=== PATIENT | female | born 2000 | race Caucasian/White ===

== ENCOUNTER → 2020-05-03 | Outpatient (CLI) | payer MEDICAID ==
[2020-05-03 17:06] LABS: BACTERIA,URINE MODERATE /HPF; BILIRUBIN,URINE NEGATIVE (NEGATIVE); CLARITY,URINE CLEAR; COLOR,URINE YELLOW; GLUCOSE, URINE (UA) NEGATIVE (NEGATIVE); KETONES,URINE NEGATIVE (NEGATIVE); LEUKOCYTE ESTERASE ,URINE TRACE (NEGATIVE); NITRITE,URINE NEGATIVE (NEGATIVE); PROTEIN,URINE NEGATIVE (NEGATIVE)
== END ==
LOC: LAB FS 15:57
PROVIDERS: ATTEND Family Medicine
DX: O26.899 Other specified pregnancy related conditions, unspecified trimester (principal); R30.0 Dysuria; Z3A.00 Weeks of gestation of pregnancy not specified
CPT/HCPCS: 81000; 87088

== ENCOUNTER 2020-05-04 18:03 | Emergency (ER) | payer MEDICAID ==
[~2020-05-04] VITALS: Ht 170 cm; Wt 68.6 kg
[2020-05-04 18:30] LABS: AMORPHOUS SEDIMENT,UR MOD AMOR URATES /LPF; BACTERIA,URINE FEW /HPF; BILIRUBIN,URINE NEGATIVE (NEGATIVE); CLARITY,URINE CLOUDY; COLOR,URINE YELLOW; GLUCOSE, URINE (UA) NEGATIVE (NEGATIVE); KETONES,URINE NEGATIVE (NEGATIVE); LEUKOCYTE ESTERASE ,URINE 1+ (NEGATIVE); NITRITE,URINE NEGATIVE (NEGATIVE); PROTEIN,URINE NEGATIVE (NEGATIVE)
[2020-05-04] MEDS ORDERED: ACETAMINOPHEN 500 MG TAB (TYLENOL) PO ONE (18:45)
[2020-05-04 18:58] LABS: HEMATOCRIT 35 % (35-52); HEMOGLOBIN 11.9 G/DL (11.5-16.0); MEAN CORPUSCULAR HEMOGLOBIN 28 PG (25-34); MEAN CORPUSCULAR HGB CONC 34 G/DL (32-36); MEAN CORPUSCULAR VOLUME 83 FL (80-99); MEAN PLATELET VOLUME 11.3 FL (7.4-10.4); PLATELET COUNT 224 10^3/uL (130-400); WHITE BLOOD COUNT 11.4 10^3/uL (4.3-11.0)
[2020-05-04 18:59] LABS: BASOPHILS % (AUTO) 0 % (0-10); EOSINOPHILS # (AUTO) 0.1 10^3/uL (0.0-0.3); EOSINOPHILS % (AUTO) 1 % (0-10); LYMPHOCYTES # (AUTO) 2.7 X 10^3 (1.0-4.0); LYMPHOCYTES % (AUTO) 23 % (12-44); MONOCYTES # (AUTO) 0.6 X 10^3 (0.0-1.0); MONOCYTES % (AUTO) 5 % (0-12); NEUTROPHILS % (AUTO) 70 % (42-75)
--- NOTE | 2020-05-04 19:00 | ED GU-Female ---
General Chief Complaint: OB < 20 WEEKS Stated Complaint: ABD CRAMPING Nursing Triage Note: Patient presents to the ED at 8weeks 6days gestation with c/o of pelvic cramping. She states the cramping began on Sunday and has continued intermittently. She was seen by her OB yesterday and was told she didn't have a UTI and to hydrate and if the pain became worse she needed to be evaluated. Nursing Sepsis Screen: No Definite Risk Source: patient Exam Limitations: no limitations History of Present Illness Date Seen by Provider: May 04, 2020 Time Seen by Provider: 18:12 Initial Comments The patient presents ER by private conveyance from home with chief complaint that today she's been experiencing some suprapubic and right lower pelvic sharp intermittent cramp-like pains. She is a . She is 8 weeks and 6 days by her own admission and had an ultrasound at 5 weeks and 6 days showing intrauterine . She had a visit with Dr. Dinero last week where she laid ultrasound on saw good heart tones. She had a urinalysis which was negative yesterday. She's not having any dysuria nausea vomiting fever chills. She says sometimes her son bounces on her tummy and that worries her that maybe she has allowed something happened to her fetus. She called her doctor's office and they told her to drink fluids and take Tylenol. She said she does not like taking medicines that she did not take any Tylenol last day or so. She admits she does not drink enough fluids. She does not have any other significant medical or surgical history in her abdomen. Allergies and Home Medications Allergies Coded Allergies: No Known Drug Allergies (Unverified , 05/04/20) Patient Home Medication List Home Medication List Reviewed: Yes Review of Systems Review of Systems Constitutional: No chills, No diaphoresis EENTM: No ear discharge, No ear pain, No blurred vision Respiratory: No cough, No phlegm Cardiovascular: No chest pain, No palpitations Gastrointestinal: see HPI, abdominal pain; No constipation (bowel movement yesterday), No diarrhea, No nausea Genitourinary: denies burning, denies discharge : Yes Musculoskeletal: No back pain, No joint pain All Other Systemes Reviewed Negative Unless Noted: Yes Past Fmicznf-Ftoxga-Qdhyji Hx Patient Social History Alcohol Use: Denies Use Recreational Drug Use: No Smoking Status: Former Smoker Type Used: Cigarettes Former Smoker, Quit: Apr 06, 2020 2nd Hand Smoke Exposure: No Recent Foreign Travel: No Contact w/Someone Who Travel: No Recent Infectious Disease Expo: No Recent Hopitalizations: No Physical Abuse: No Sexual Abuse: No Mistreated: No Fear: No Seasonal Allergies Seasonal Allergies: No Past Medical History Adenoidectomy, Orthopedic, Tonsillectomy Respiratory: Yes Asthma Cardiac: No Neurological: No Genitourinary: No Gastrointestinal: No Musculoskeletal: No Endocrine: No HEENT: No Cancer: No Psychosocial: No Integumentary: No Blood Disorders: No Physical Exam Vital Signs Vital Signs - First Documented 05/04/20 18:17 Temp 36.9 Pulse 103 Resp 16 B/P (MAP) 142/67 (92) Pulse Ox 99 O2 Delivery Room Air Capillary Refill : Less Than 3 Seconds Height, Weight, BMI Height: '" Weight: lbs. oz. kg; 23.00 BMI Method: General Appearance: WD/WN, mild distress HEENT: PERRL/EOMI, pharynx normal Neck: full range of motion, normal inspection Cardiovascular: normal peripheral pulses, regular rate, rhythm Respiratory: no respiratory distress, no accessory muscle use Gastrointestinal: normal bowel sounds, non tender, soft Extremities: normal range of motion, normal capillary refill Neurologic/Psychiatric: alert, oriented x 3, other (tearful, anxious affect) Skin: normal color, warm/dry Progress/Results/Core Measures Suspected Sepsis Recent Fever Within 48 Hours: No Infection Criteria Present: None New/Unexplained Altered Menta: No Sepsis Screen: No Definite Risk SIRS Temperature: Pulse: 103 Respiratory Rate: 16 Laboratory Tests 05/04/20 18:45: White Blood Count 11.4H Blood Pressure 142 /67 Mean: 92 Laboratory Tests 05/04/20 18:45: Creatinine 0.61, Platelet Count 224, Total Bilirubin 0.2 Results/Orders Lab Results Laboratory Tests Test 05/04/20 18:05 05/04/20 18:45 Range/Units Urine Color YELLOW Urine Clarity CLOUDY Urine pH 7.0 5-9 Urine Specific [place] 1.020 1.016-1.022 Urine Protein NEGATIVE NEGATIVE Urine Glucose (UA) NEGATIVE NEGATIVE Urine Ketones NEGATIVE NEGATIVE Urine Nitrite NEGATIVE NEGATIVE Urine Bilirubin NEGATIVE NEGATIVE Urine Urobilinogen 0.2 < = 1.0 MG/DL Urine Leukocyte Esterase 1+ H NEGATIVE Urine RBC (Auto) NEGATIVE NEGATIVE Urine RBC NONE /HPF Urine WBC 2-5 /HPF Urine Squamous Epithelial Cells 2-5 /HPF Urine Crystals PRESENT H /LPF Urine Amorphous Sediment MOD PREAM URATES H /LPF Urine Bacteria FEW H /HPF Urine Casts NONE /LPF Urine Mucus NEGATIVE /LPF Urine Culture Indicated NO White Blood Count 11.4 H 4.3-11.0 10^3/uL Red Blood Count 4.23 L 4.35-5.85 10^6/uL Hemoglobin 11.9 11.5-16.0 G/DL Hematocrit 35 35-52 % Mean Corpuscular Volume 83 80-99 FL Mean Corpuscular Hemoglobin 28 25-34 PG Mean Corpuscular Hemoglobin Concent 34 32-36 G/DL Red Cell Distribution Width 12.5 10.0-14.5 % Platelet Count 224 130-400 10^3/uL Mean Platelet Volume 11.3 H 7.4-10.4 FL Immature Granulocyte % (Auto) 0 % Neutrophils (%) (Auto) 70 42-75 % Lymphocytes (%) (Auto) 23 12-44 % Monocytes (%) (Auto) 5 0-12 % Eosinophils (%) (Auto) 1 0-10 % Basophils (%) (Auto) 0 0-10 % Neutrophils # (Auto) 8.0 H 1.8-7.8 X 10^3 Lymphocytes # (Auto) 2.7 1.0-4.0 X 10^3 Monocytes # (Auto) 0.6 0.0-1.0 X 10^3 Eosinophils # (Auto) 0.1 0.0-0.3 10^3/uL Basophils # (Auto) 0.0 0.0-0.1 10^3/uL Immature Granulocyte # (Auto) 0.0 0.0-0.1 10^3/uL Sodium Level 137 135-145 MMOL/L Potassium Level 3.7 3.6-5.0 MMOL/L Chloride Level 104 98-107 MMOL/L Carbon Dioxide Level 22 21-32 MMOL/L Anion Gap 11 5-14 MMOL/L Blood Urea Nitrogen 7 7-18 MG/DL Creatinine 0.61 0.60-1.30 MG/DL Estimat Glomerular Filtration Rate > 60 BUN/Creatinine Ratio 11 Glucose Level 93 70-105 MG/DL Calcium Level 9.2 8.5-10.1 MG/DL Corrected Calcium 9.0 8.5-10.1 MG/DL Total Bilirubin 0.2 0.1-1.0 MG/DL Aspartate Amino Transf (AST/SGOT) 13 5-34 U/L Alanine Aminotransferase (ALT/SGPT) 18 0-55 U/L Alkaline Phosphatase 58 40-136 U/L C-Reactive Protein 0.44 <0.50 MG/DL Total Protein 6.6 6.4-8.2 GM/DL Albumin 4.2 3.2-4.5 GM/DL My Orders Orders - BECKY BOOKER Ua Culture If Indicated (05/04/20 18:15) Urine Bedside (05/04/20 18:15) Cbc With Automated Diff (05/04/20 18:36) Comprehensive Metabolic Panel (05/04/20 18:36) Crp Fs (05/04/20 18:36) Acetaminophen Tablet (Tylenol Tablet) (05/04/20 18:45) Medications Given in ED Current Medications Medications Dose Ordered Sig/[place] Route Start Time Stop Time Status Last Admin Dose Admin Acetaminophen 1,000 mg ONCE ONCE PO 05/04/20 18:45 05/04/20 18:46 DC 05/04/20 18:40 1,000 MG Vital Signs/I&O 05/04/20 18:17 Temp 36.9 Pulse 103 Resp 16 B/P (MAP) 142/67 (92) Pulse Ox 99 O2 Delivery Room Air Capillary Refill : Less Than 3 Seconds Blood Pressure Mean: 92 Progress Note : Time: 18:59 Progress Note Aseptic vital signs, well-appearing female with a nontender abdomen on exam while being distracted by conversation. She has no psoas signs mesenteric signs. We'll check some basic labs and urinalysis and consult with Dr. Dinero. Unremarkable white count. No anemia. Departure Communication (PCP) Discussed the case with Dr. Dinero and she agrees with the plan Tylenol, oral fluids and follow up at the scheduled appointment next week. Impression Primary Impression: Pain of round ligament during Disposition: 01 HOME, SELF-CARE Condition: Stable Departure-Patient Inst. Decision time for Depature: 19:35 Referrals: TEAGAN DINERO MD (PCP/Family) Primary Care Physician Patient Instructions: Round Ligament Pain Add. Discharge Instructions: Make sure you're drinking plenty of fluids. The pain comes on try sitting still is much as possible for about 20-30 minutes use heating pads as necessary and Tylenol 1000 mg every 8 hours as necessary for pain. Keep your follow-up appointment with Dr. Dinero. All discharge instructions reviewed with patient and/or family. Voiced understanding. BECKY BOOKER May 04, 2020 19:00
[2020-05-04 19:12] LABS: SODIUM 137 MMOL/L (135-145)
[2020-05-04 19:13] LABS: ALANINE AMINOTRANSFERASE 18 U/L (0-55); ALBUMIN 4.2 GM/DL (3.2-4.5); ALKALINE PHOSPHATASE 58 U/L (40-136); BILIRUBIN,TOTAL 0.2 MG/DL (0.1-1.0); BUN/CREATININE RATIO 11; CALCIUM 9.2 MG/DL (8.5-10.1); CARBON DIOXIDE 22 MMOL/L (21-32); CHLORIDE 104 MMOL/L (98-107); CREATININE SERUM 0.61 MG/DL (0.60-1.30); GFR ESTIMATED > 60; GLUCOSE 93 MG/DL (70-105); POTASSIUM 3.7 MMOL/L (3.6-5.0); TOTAL PROTEIN 6.6 GM/DL (6.4-8.2)
[2020-05-04 19:41] VITALS: BP 131/67
== END 2020-05-04 19:41 | disposition home or self-care (01) ==
LOC: EDUNIT# 18:03 → ER FS 18:05
DX: O26.891 Other specified pregnancy related conditions, first trimester (principal); R10.2 Pelvic and perineal pain; Z3A.08 8 weeks gestation of pregnancy; Z87.891 Personal history of nicotine dependence
CPT/HCPCS: 36415; 80053; 81000; 84703; 85025; 86141

== ENCOUNTER → 2020-06-23 | Outpatient (CLI) | payer MEDICAID | LOC: LAB FS 10:45 | PROVIDERS: ATTEND Family Medicine | DX: Z34.92 Encounter for supervision of normal pregnancy, unspecified, second trimester (principal); Z3A.00 Weeks of gestation of pregnancy not specified | CPT/HCPCS: 36415; 82105; 84702; 86336 ==

== ENCOUNTER → 2020-09-15 | Outpatient (CLI) | payer MEDICAID, OTHER ==
[2020-09-15 10:54] LABS: HEMOGLOBIN 10.6 G/DL (11.5-16.0); MEAN PLATELET VOLUME 11.3 FL (7.4-10.4); WHITE BLOOD COUNT 8.9 10^3/uL (4.3-11.0)
== END ==
LOC: LAB FS 09:37
PROVIDERS: ATTEND Family Medicine
DX: Z34.93 Encounter for supervision of normal pregnancy, unspecified, third trimester (principal)
CPT/HCPCS: 36415; 82950; 85027; 86780

== ENCOUNTER → 2020-11-04 | Outpatient (CLI) | payer MEDICAID | LOC: IHC 15:57 | PROVIDERS: ATTEND Family Medicine | DX: Z33.1 Pregnant state, incidental (principal); Z86.19 Personal history of other infectious and parasitic diseases | CPT/HCPCS: 87210 ==

== ENCOUNTER 2020-11-07 22:22 | Outpatient (CLI) | payer MEDICAID ==
[~2020-11-07] VITALS: Ht 165.1 cm; Wt 75.8 kg
[2020-11-07 22:45] VITALS: BP 124/74
[2020-11-07 23:00] VITALS: BP_SYST 117; BP_SYST 129; BP_DIAS 60; BP_DIAS 70
[2020-11-07 23:00] LABS: BILIRUBIN,URINE NEGATIVE (NEGATIVE); CLARITY,URINE CLEAR; COLOR,URINE YELLOW; GLUCOSE, URINE (UA) NEGATIVE (NEGATIVE); KETONES,URINE NEGATIVE (NEGATIVE); LEUKOCYTE ESTERASE ,URINE TRACE (NEGATIVE); NITRITE,URINE NEGATIVE (NEGATIVE); PROTEIN,URINE NEGATIVE (NEGATIVE)
[2020-11-07 23:06] LABS: BACTERIA,URINE TRACE /HPF; SQUAMOUS EPITHELIAL CELL,UR 0-2 /HPF
[2020-11-07 23:15] VITALS: BP 129/70
[2020-11-07 23:45] VITALS: BP 124/74
--- NOTE | 2020-11-08 08:03 | Physician Query-Final Dx ---
LUIS TAYLOR 11/08/20 0803: Clinic Account Progress/Dx Physician Query: Please give diagnosis Please include # weeks gestation Date of Service Nov 07, 2020 at 22:22 EARL ESPINOSA DO 11/08/20 1636: Clinic Account Progress/Dx DIAGNOSIS: Diagnosis 35 week IUP Headache and numbness in extremities. LUIS TAYLOR Nov 08, 2020 08:03 EARL ESPINOSA DO Nov 08, 2020 16:36
== END 2020-11-07 23:37 | disposition home or self-care (01) ==
LOC: WSo 22:22 → LDRP 22:23 → WSo 23:37
PROVIDERS: ATTEND Obstetrics & Gynecology
DX: O26.893 Other specified pregnancy related conditions, third trimester (principal); Z3A.35 35 weeks gestation of pregnancy
CPT/HCPCS: 81000; 87088; G0463; 99213

== ENCOUNTER → 2020-11-10 | Outpatient (CLI) | payer MEDICAID ==
--- NOTE | 2020-11-10 16:52 | Diagnostic Imaging Report ---
INDICATION: Assessment during normal . TECHNIQUE: Multiple real-time grayscale images were obtained over the gravid uterus. COMPARISON: None FINDINGS: There is presence of a single viable intrauterine , currently in cephalic presentation. Normal amount of amniotic fluid. Posterior placenta without evidence for previa. anatomic assessment not performed on this study. Biometrical measurements are as follows: Biparietal 8.82 cm, age 35 weeks 5 days. Head circumference 32.88 cm, age 37 weeks 3 days. Abdominal circumference 32.07 cm, age 36 weeks 0 days. Femur length 6.97 cm, age 35 weeks 6 days. Sonographic estimate age: 36 weeks 2 days. Sonographic estimated date of delivery: 12/06/20. Estimated Weight: 2833 gm (+/- 414 gm). LMP percentile: 52%. heart rate: 114 beats per minute. number: 1 of 1. Biophysical Profile Scoring: breathin Body movement: 2 tone: 2 Amniotic fluid: 2 Total BPP Score: 8/8 IMPRESSION: 1. Single viable intrauterine currently in a cephalic presentation. Sonographic estimated age 36 weeks 2 days for estimated date of delivery 12/06/2020. 2. Normal biophysical profile scoring 8 of 8. Dictated by: Dictated on workstation # [id number]
== END ==
LOC: RAD 15:15
PROVIDERS: ATTEND Obstetrics & Gynecology
DX: Z34.93 Encounter for supervision of normal pregnancy, unspecified, third trimester (principal); Z3A.36 36 weeks gestation of pregnancy
CPT/HCPCS: 76805; 76819

== ENCOUNTER 2020-11-18 15:05 | Outpatient (CLI) | payer MEDICAID ==
[~2020-11-18] VITALS: Ht 170.2 cm; Wt 77.0 kg
[2020-11-18 15:10] VITALS: BP 128/78
[2020-11-18 15:14] VITALS: BP 128/78
[2020-11-18 15:20] VITALS: BP 128/77
[2020-11-18 15:30] VITALS: BP 123/73
[2020-11-18 15:40] VITALS: BP 126/72
[2020-11-18 15:42] LABS: BILIRUBIN,URINE NEGATIVE (NEGATIVE); CLARITY,URINE CLEAR; COLOR,URINE YELLOW; GLUCOSE, URINE (UA) NEGATIVE (NEGATIVE); KETONES,URINE NEGATIVE (NEGATIVE); LEUKOCYTE ESTERASE ,URINE NEGATIVE (NEGATIVE); NITRITE,URINE NEGATIVE (NEGATIVE); PROTEIN,URINE NEGATIVE (NEGATIVE)
[2020-11-18 15:50] VITALS: BP 130/75
[2020-11-18 15:54] LABS: BACTERIA,URINE TRACE /HPF
--- NOTE | 2020-11-19 07:38 | Physician Query-Final Dx ---
LUIS TAYLOR 11/19/20 0738: Clinic Account Progress/Dx Physician Query: Please give diagnosis Please include # weeks gestation Date of Service Nov 18, 2020 at 15:05 EARL ESPINOSA DO 11/19/20 0845: Clinic Account Progress/Dx DIAGNOSIS: Diagnosis 37 week IUP Irregular contractions LUIS TAYLOR Nov 19, 2020 07:38 EARL ESPINOSA DO Nov 19, 2020 08:45
== END 2020-11-18 16:40 | disposition home or self-care (01) ==
LOC: WSo 15:05 → LDRP 16:01 → WSo 16:40
PROVIDERS: ATTEND Obstetrics & Gynecology
DX: O62.0 Primary inadequate contractions (principal); Z3A.37 37 weeks gestation of pregnancy
CPT/HCPCS: 81000; 87088

== ENCOUNTER 2020-11-25 22:13 | Inpatient (IN) | payer MEDICAID ==
[~2020-11-25] VITALS: Ht 170 cm; Wt 73.0 kg
[2020-11-25] MEDS ORDERED: D5 LR IV SOLUTION 1,000 ML IV ONE (22:29)
[2020-11-25] MEDS ORDERED: D5 LR IV SOLUTION 1,000 ML IV SCH (22:45)
[2020-11-25] MEDS ORDERED: MINERAL OIL CONCENTRATE 99.9% 15 ML UDC TOP PRN (22:45)
[2020-11-25] MEDS ORDERED: fentaNYL 2 mcg/ml BUPIVA 0.125 100 ML ONE (22:53)
[2020-11-25 23:01] LABS: BASOPHILS % (AUTO) 0 % (0-10); EOSINOPHILS # (AUTO) 0.1 10^3/uL (0.0-0.3); EOSINOPHILS % (AUTO) 1 % (0-10); HEMATOCRIT 35 % (35-52); LYMPHOCYTES # (AUTO) 2.2 10^3/uL (1.0-4.0); LYMPHOCYTES % (AUTO) 25 % (12-44); MEAN CORPUSCULAR HEMOGLOBIN 26 pg (25-34); MEAN CORPUSCULAR HGB CONC 32 g/dL (32-36); MEAN CORPUSCULAR VOLUME 80 fL (80-99); MEAN PLATELET VOLUME 11.7 fL (9.0-12.2); MONOCYTES # (AUTO) 0.7 10^3/uL (0.0-1.0); MONOCYTES % (AUTO) 8 % (0-12); NEUTROPHILS % (AUTO) 66 % (42-75); PLATELET COUNT 177 10^3/uL (130-400); WHITE BLOOD COUNT 9.1 10^3/uL (4.3-11.0)
[2020-11-26] MEDS ORDERED: ONDANSETRON 4 MG/2 ML (SDV) Z0FRAN IV PRN
[2020-11-26] MEDS ORDERED: METOCLOPRAMIDE INJ 10 MG/2 ML (REGLAN) IV PRN
[2020-11-26] MEDS ORDERED: EPIDURAL (fentaNYL 2 MCG/ML BUPIVA 0.125%)100 ML BAG EPI SCH
[2020-11-26] MEDS ORDERED: diphenhydrAMINE 50 MG/ML INJ (BENADRYL) IV PRN
[2020-11-26] MEDS ORDERED: LACTATED RINGERS 1,000 ML IV SCH
[2020-11-26] MEDS ORDERED: NALOXONE 0.4 MG/ML 1 ML (NARCAN) VIAL IV PRN ×2
[2020-11-26] MEDS ORDERED: LIDOCAINE/EPI 2% 1:200,00 (XYLOCAINE) 20 ML VIAL ONE (03:17)
[2020-11-26] MEDS ORDERED: OXYTOCIN PRE-MIX DRIP 500 ML IV ONE (03:17)
--- NOTE | 2020-11-26 05:08 | History & Physical-OB ---
OB - Chief Complaint & HPI Date/Time Date of Admission: Date of Admission: Nov 25, 2020 at 22:34 Date seen by a Provider: Nov 26, 2020 Time Seen by a Provider: 04:00 Chief Complaint/History OB-Reason for Admission/Chief: Rupture of Membranes Expected Date of Delivery: December 09, 2020 Gestational Age in Weeks: 38 Gestational Age in Days: 2 Other reason for admission: Patient was admitted by Dr. Vizcarra on 11/25/2020 for ROM and labor at 38 1/7 weeks. she was admitted and I resumed care. She is a patient that has received most of her care in [facility] with Dr. Roberts. I was consulted for delivery at [facility]. She has had a complicated by anxiety. She has not taken the meds pr escribed due to lack of insurance (has insurance now). Was treated for Trich and chlamydia. EVELYN was neg 11/03/2020 A +/- Syphilis - GBS - other labs were not able to be located. would have been done in [facility], but not in her chart, nor at the [facility] lab. Will redraw unless they can be located. Admission Nurse Assessment Rev: Yes Allergies and Home Medications Allergies Coded Allergies: No Known Drug Allergies (Unverified , 11/25/20) Home Medications Acetaminophen 500 Mg Tablet, 1,000 MG PO Q8HR Prescribed by: MARCO ANTONIO ALAN on 11/27/20921 Ibuprofen 600 Mg Tablet, 600 MG PO Q6HR Prescribed by: MARCO ANTONIO ALAN on 11/27/20921 Patient Home Medication List Home Medication List Reviewed: Yes OB - History Hx of Present Care: Yes Ultrasounds: Normal mid trimester US Obstetrical Complications: None Medical Complications: None Information Induced Hypertension: No Maternal Gestational Diabetes: No Hemorrhage: No Obstetrical History Hx : 2 Hx Para: 1 Hx # Term Pregnancies: 1 Hx # Pregnancies: 0 Number of Living Children: 1 Hx Termination: No Hx Multiple Gestation: No Hx Ectopic : No Hx Stillbirth: No Hx Complication: No Hx Induced Hypertens: No Hx Maternal Gestational Diabet: No Hx Hemorrhage: No Delivery History Hx Dystocia: No Hx Forceps Assisted Delivery: No Hx Vacuum Extraction Assisted: No Hx Placenta Abnormality: No Hx Distress: No Hx Large For Gestational Age I: No Hx Small for Gestational Age I: No Hx Section: No Hx Vaginal Delivery Post C-Sec: No Hx Blood Disorders: No Patient Past Medical History anxiety Social History/Family History Alcohol Use: Denies Use Recreational Drug Use: No Smoking Cessation: Former smoker 2nd Hand Smoke Exposure: No Immunizations Tetanus Booster (TDap): Less than 5yrs (29 week gestation) Rubella: unknown RPR/VDRL: Negative GBS Status: Negative HBsAG: Unknown OB - Admission Exam Physical Exam Vitals: Vital Signs 11/26/20 11/26/20 04:05 04:20 Temp 36.7 Pulse 83 Resp 16 B/P (MAP) 130/83 (99) Pulse Ox 100 O2 Delivery Room Air Cervical Dilatation: 5cm (on admission) Station: -2 Membranes: Ruptured (clear) Heart Rate: 130's Accelerations: Accelerations Present Decelerations: No Decelerations Short Term Variability: Present Frit Mixer Variability: Average (6-25) Contractions on Admission: < 5 Minutes Apart Labs Laboratory Tests Test 11/25/20 22:50 Range/Units White Blood Count 9.1 4.3-11.0 10^3/uL Red Blood Count 4.32 3.80-5.11 10^6/uL Hemoglobin 11.0 L 11.5-16.0 g/dL Hematocrit 35 35-52 % Mean Corpuscular Volume 80 80-99 fL Mean Corpuscular Hemoglobin 26 25-34 pg Mean Corpuscular Hemoglobin Concent 32 32-36 g/dL Red Cell Distribution Width 14.3 10.0-14.5 % Platelet Count 177 130-400 10^3/uL Mean Platelet Volume 11.7 9.0-12.2 fL Immature Granulocyte % (Auto) 1 % Neutrophils (%) (Auto) 66 42-75 % Lymphocytes (%) (Auto) 25 12-44 % Monocytes (%) (Auto) 8 0-12 % Eosinophils (%) (Auto) 1 0-10 % Basophils (%) (Auto) 0 0-10 % Neutrophils # (Auto) 6.0 1.8-7.8 10^3/uL Lymphocytes # (Auto) 2.2 1.0-4.0 10^3/uL Monocytes # (Auto) 0.7 0.0-1.0 10^3/uL Eosinophils # (Auto) 0.1 0.0-0.3 10^3/uL Basophils # (Auto) 0.0 0.0-0.1 10^3/uL Immature Granulocyte # (Auto) 0.1 0.0-0.1 10^3/uL OB - Assessment/Plan/Diagnosis Assessment Assessment: rupture of membranes Admission Dx labor Admission Status: Inpatient Order (span 2 midnights) Reason for Inpatient Admission: labor and delivery Plan Plan: Other (Patient was admitted) MARCO ANTONIO ALAN DO Nov 26, 2020 05:08
--- NOTE | 2020-11-26 05:42 | OB Labor & Delivery Record ---
Vag Delivery Note Vag Delivery Note Date of Delivery: 11/26/20 Preoperative Diagnosis: [place] is a 20 /Para 2 / 1,Gestational Age 38 1/7 weeks Postoperative Diagnosis: Same Surgeon: MARCO ANTONIO ALAN Anesthesia: epidural Delivery Type: findings Viable female infant, apgars 7/8, weight7#5 ounces Lacerations: none Intact placenta with 3 vessel cord. No nuchal cord, body cord or shoulder dystoc ia Estimated Blood Loss: 150 ml Complications: None Condition: Stable Description of Procedure: The patient is a 20 year old female who presented with spontaneous rupture of membranes. She was admitted and informed consent was obtained. Her labor course was remarkable for epdirual and spontaneous labor. She progressed to complete dilatation and began to push. She was then set up for delivery. The 's head was delivered atraumatically in the OA position. The shoulders and remainder of the infant's body were then delivered without difficulty. Upon delivery, the head was held below the level of the perineum and the mouth and nares were bulb suctioned. The cord was doubly clamped and cut and the infant was handed off to the pediatric staff. An intact placenta with 3-vessel cord delivered via [place] and there was found to be minimal bleeding.~ Vigorous fundal massage was performed and the fundus was found to be firm. IV oxytocin was given. Examination of the vagina and perineum revealed anterior labia abrasions bilaterally not requiring repair. Following the delivery, sponge, instrument and needle counts were correct. Mom and baby were both in stable condition in the labor suite. Vitals - Labs Vital Signs - I&O Vital Signs Date Time Temp Pulse Resp B/P (MAP) Pulse Ox O2 Delivery O2 Flow Rate FiO2 11/26/20 04:20 83 16 130/83 (99) 100 Room Air 11/26/20 04:05 36.7 87 16 118/81 (93) 99 Room Air 11/26/20 03:50 72 16 119/78 (92) 99 Room Air 11/26/20 03:35 80 16 117/75 (89) 98 Room Air 11/26/20 03:20 36.0 76 16 124/76 (92) 100 Room Air 11/26/20 03:05 77 16 113/64 (80) 98 Room Air 11/26/20 02:50 80 16 111/65 (80) 97 Room Air 11/26/20 02:35 76 16 111/64 (80) 97 Room Air 11/26/20 02:20 86 16 123/64 (83) 99 Room Air 11/26/20 02:05 71 16 115/64 (81) 98 Room Air 11/26/20 01:30 36.3 80 18 124/71 (88) 99 Room Air 11/26/20 01:25 77 18 125/79 (94) 100 Room Air 11/26/20 01:20 88 18 128/75 (92) 98 Room Air 11/26/20 01:15 95 18 125/70 (88) 100 Room Air 11/26/20 01:13 102 18 129/71 (90) 99 Room Air 11/26/20 01:08 83 18 131/72 (91) 99 Room Air 11/26/20 01:05 36.5 81 18 132/72 (92) 99 Room Air 11/26/20 01:03 107 18 125/61 (82) 99 Room Air 11/26/20 01:00 76 18 127/71 (89) 100 Room Air 11/26/20 00:55 81 18 121/68 (85) 100 Room Air 11/26/20 00:50 90 18 123/71 (88) 100 Room Air 11/26/20 00:47 96 18 126/75 (92) 100 Room Air 11/26/20 00:45 77 18 122/73 (89) 100 Room Air 11/26/20 00:42 76 18 128/85 (99) 100 Room Air 11/26/20 00:37 86 18 121/81 (94) 100 Room Air 11/26/20 00:33 84 18 120/73 (89) 100 Room Air 11/26/20 00:30 79 18 123/70 (87) 100 Room Air 11/26/20 00:21 94 18 131/79 (96) 100 Room Air 11/26/20 00:18 107 18 134/85 (101) 100 Room Air 11/26/20 00:14 104 18 136/78 (97) 100 Room Air 11/26/20 00:10 100 18 127/77 (94) 98 Room Air 11/26/20 00:05 106 18 126/66 (86) 98 Room Air 11/26/20 00:00 113 18 160/73 (102) 98 Room Air 11/25/20 23:55 101 18 158/75 (102) 98 11/25/20 23:50 101 18 134/81 (98) 99 11/25/20 23:47 88 18 123/66 (85) 99 11/25/20 23:43 98 18 120/61 (80) 100 11/25/20 23:40 85 18 128/56 (80) 100 11/25/20 23:40 36.9 96 18 100 Room Air 11/25/20 23:37 96 18 127/71 (89) 100 11/25/20 23:34 86 18 144/64 (90) 100 11/25/20 23:30 86 18 141/67 (91) 100 11/25/20 23:27 116 18 150/65 (93) 100 11/25/20 23:23 105 18 140/81 (100) 100 11/25/20 23:20 102 18 135/69 (91) 100 11/25/20 23:17 102 18 145/96 (112) 100 11/25/20 23:14 121 18 147/99 (115) 100 11/25/20 23:11 36.9 109 18 135/90 (105) 100 Room Air 11/25/20 22:55 96 18 131/83 (99) 11/25/20 22:35 89 18 129/84 (99) Labs Laboratory Tests 11/25/20 22:50: White Blood Count 9.1, Red Blood Count 4.32, Hemoglobin 11.0L, Hematocrit 35, Mean Corpuscular Volume 80, Mean Corpuscular Hemoglobin 26, Mean Corpuscular Hemoglobin Concent 32, Red Cell Distribution Width 14.3, Platelet Count 177, Mean Platelet Volume 11.7, Immature Granulocyte % (Auto) 1, Neutrophils (%) (Auto) 66, Lymphocytes (%) (Auto) 25, Monocytes (%) (Auto) 8, Eosinophils (%) (Auto) 1, Basophils (%) (Auto) 0, Neutrophils # (Auto) 6.0, Lymphocytes # (Auto) 2.2, Monocytes # (Auto) 0.7, Eosinophils # (Auto) 0.1, Basophils # (Auto) 0.0, Immature Granulocyte # (Auto) 0.1 MARCO ANTONIO ALAN DO Nov 26, 2020 05:42
[2020-11-26] MEDS ORDERED: BENZOCAINE/MENTHOL (DERMOPLAST) 56 ML CAN TP PRN (05:45)
[2020-11-26] MEDS ORDERED: TETANUS,DIPTH,PERTUSS P/F (BOOSTRIX) 0.5 ML VIAL IM ONE (05:45)
[2020-11-26] MEDS ORDERED: WITCH HAZEL(TUCKS) 40 EA JAR TOP PRN (05:45)
[2020-11-26] MEDS ORDERED: OXYTOCIN PRE-MIX DRIP 500 ML IV SCH (05:45)
[2020-11-26] MEDS ORDERED: MEASLES,MUMPS,RUBELLA 1 EA INJ SQ ONE (05:45)
[2020-11-26] MEDS ORDERED: DIBUCAINE 1% OINTMENT 30 GM TUBE TOP PRN (05:45)
[2020-11-26] MEDS: IBUPROFEN 600 MG (MOTRIN) TAB PO SCH ×3 (05:52→18:17)
[2020-11-26] MEDS: ACETAMINOPHEN 500 MG TAB (TYLENOL) PO SCH ×2 (05:52→18:17)
[2020-11-26] MEDS ORDERED: CATHETER FLUSH 10 ML SYR IV SCH ×2 (06:00)
--- NOTE | 2020-11-26 07:21 | Anesthesia-Regional Post-Op ---
Regional Patient Condition Mental Status: Alert, Oriented x3 Circulation: Same as Pre-Op Headache: Absent Sensation: Full Recovery Motor Block: Absent Post Op Complications Complications None Follow Up Care/Instructions Patient Instructions None needed. Anesthesia/Patient Condition Patient is doing well, no complaints, stable vital signs, no apparent adverse anesthesia problems. No complications reported per nursing. MIREYA SÁNCHEZ CRNA Nov 26, 2020 07:21
[2020-11-26] MEDS: DOCUSATE SODIUM 100 MG (COLACE) CAP PO SCH ×2 (12:30→20:00)
[2020-11-26] MEDS: FERROUS SULF 325 MG (IRON) TAB PO SCH (12:30)
[2020-11-27] MEDS: IBUPROFEN 600 MG (MOTRIN) TAB PO SCH ×3 (00:24→12:41)
[2020-11-27] MEDS: ACETAMINOPHEN 500 MG TAB (TYLENOL) PO SCH ×3 (03:42→14:00)
[2020-11-27 05:52] LABS: BASOPHILS % (AUTO) 0 % (0-10); EOSINOPHILS # (AUTO) 0.1 10^3/uL (0.0-0.3); EOSINOPHILS % (AUTO) 1 % (0-10); HEMATOCRIT 33 % (35-52); HEMOGLOBIN 10.3 g/dL (11.5-16.0); LYMPHOCYTES # (AUTO) 2.2 10^3/uL (1.0-4.0); LYMPHOCYTES % (AUTO) 21 % (12-44); MEAN CORPUSCULAR HEMOGLOBIN 26 pg (25-34); MEAN CORPUSCULAR HGB CONC 32 g/dL (32-36); MEAN CORPUSCULAR VOLUME 81 fL (80-99); MEAN PLATELET VOLUME 11.7 fL (9.0-12.2); MONOCYTES # (AUTO) 0.7 10^3/uL (0.0-1.0); MONOCYTES % (AUTO) 7 % (0-12); NEUTROPHILS # (AUTO) 7.8 10^3/uL (1.8-7.8); NEUTROPHILS % (AUTO) 71 % (42-75); PLATELET COUNT 150 10^3/uL (130-400); WHITE BLOOD COUNT 10.9 10^3/uL (4.3-11.0)
[2020-11-27] MEDS: DOCUSATE SODIUM 100 MG (COLACE) CAP PO SCH (08:24)
[2020-11-27] MEDS: FERROUS SULF 325 MG (IRON) TAB PO SCH (08:24)
[2020-11-27] MEDS: PRENATAL VITAMIN 1 EA TAB PO SCH ×2 (08:24→14:16)
--- NOTE | 2020-11-27 09:21 | Postpartum Progress Note ---
Note Note Day # 1 s/p Subjective: Patient is without complaints. Ambulating, voiding. Tolerating a regular diet w ithout nausea or vomiting. Normal lochia. Pain is well controlled with oral pain medications. breast feeding. [] Objective: Laboratory Tests Test 11/27/20 05:32 Range/Units White Blood Count 10.9 4.3-11.0 10^3/uL Red Blood Count 4.00 3.80-5.11 10^6/uL Hemoglobin 10.3 L 11.5-16.0 g/dL Hematocrit 33 L 35-52 % Mean Corpuscular Volume 81 80-99 fL Mean Corpuscular Hemoglobin 26 25-34 pg Mean Corpuscular Hemoglobin Concent 32 32-36 g/dL Red Cell Distribution Width 14.6 H 10.0-14.5 % Platelet Count 150 130-400 10^3/uL Mean Platelet Volume 11.7 9.0-12.2 fL Immature Granulocyte % (Auto) 1 % Neutrophils (%) (Auto) 71 42-75 % Lymphocytes (%) (Auto) 21 12-44 % Monocytes (%) (Auto) 7 0-12 % Eosinophils (%) (Auto) 1 0-10 % Basophils (%) (Auto) 0 0-10 % Neutrophils # (Auto) 7.8 1.8-7.8 10^3/uL Lymphocytes # (Auto) 2.2 1.0-4.0 10^3/uL Monocytes # (Auto) 0.7 0.0-1.0 10^3/uL Eosinophils # (Auto) 0.1 0.0-0.3 10^3/uL Basophils # (Auto) 0.0 0.0-0.1 10^3/uL Immature Granulocyte # (Auto) 0.1 0.0-0.1 10^3/uL Physical Exam: General - Alert and oriented, no apparent distress Abdomen - Soft, appropriately tender to palpation, non-distended, fundus firm at umbilicus Extremities - no edema, negative Louise's bilaterally Assessment: 1. post- day #1, status post spont vaginal delivery. Recovering well, hemodynamically stable 2. at risk for PP depression Plan: Routine care. Encourage breast feeding. Encourage ambulation. Ferrous sulfate supplementation. Plan for discharge Vitals - Labs Vital Signs - I&O Vital Signs Date Time Temp Pulse Resp B/P (MAP) Pulse Ox O2 Delivery O2 Flow Rate FiO2 11/27/20 08:00 36.0 74 16 117/73 (88) 98 Room Air 11/27/20 03:50 36.0 86 16 120/57 (78) 97 Room Air 11/27/20 00:30 36.3 88 16 130/60 (83) 98 Room Air 11/26/20 20:00 36.2 88 16 116/56 (76) 98 Room Air 11/26/20 18:15 37.1 82 18 108/71 (83) 97 Room Air 11/26/20 12:30 36.8 94 18 115/66 (82) 98 Room Air 11/26/20 09:40 85 18 117/61 (79) Room Air Labs Laboratory Tests 11/27/20 05:32: White Blood Count 10.9, Red Blood Count 4.00, Hemoglobin 10.3L, Hematocrit 33L, Mean Corpuscular Volume 81, Mean Corpuscular Hemoglobin 26, Mean Corpuscular Hemoglobin Concent 32, Red Cell Distribution Width 14.6H, Platelet Count 150, Mean Platelet Volume 11.7, Immature Granulocyte % (Auto) 1, Neutrophils (%) (Auto) 71, Lymphocytes (%) (Auto) 21, Monocytes (%) (Auto) 7, Eosinophils (%) (Auto) 1, Basophils (%) (Auto) 0, Neutrophils # (Auto) 7.8, Lymphocytes # (Auto) 2.2, Monocytes # (Auto) 0.7, Eosinophils # (Auto) 0.1, Basophils # (Auto) 0.0, Immature Granulocyte # (Auto) 0.1 MARCO ANTONIO ALAN DO Nov 27, 2020 09:21
[2020-11-27] MEDS ORDERED: ACET-93 PO (09:22)
[2020-11-27] MEDS ORDERED: IBUP-844 PO (09:22)
--- NOTE | 2020-11-27 09:25 | Discharge Inst-Women's Service ---
Discharge Inst-Women's Serv Depart Medication/Instructions New, Converted or Re-Newed RX: RX on Chart Final Diagnosis spontaneous rupture of membranes vaginal delivery Consults/Follow Up Additional Follow Up: Yes (6 week pp exam) Activity Activity: Activity as Tolerated Driving Instructions: You May Drive NO SMOKING: NO SMOKING Nothing Inside Vagina: No Douching, No [place], No Tampons Diet Discharge Diet: No Restrictions Symptoms to Report to : Bleeding Excessive, Pain Increased, Fever Over 101 Degrees F, Vaginal Bleeding Increase, Cramps in Feet or Legs, Vaginal Discharge Foul For Any Problems or Questions: Contact Your Physician Skin/Wound Care Bathing Instructions: MARCO ANTONIO Pearson DO Nov 27, 2020 09:25
[2020-11-27 14:00] VITALS: BP 122/68
== END 2020-11-27 16:00 | disposition home or self-care (01) | DRG 807 ==
LOC: WSo 22:13 → LDRP 22:13 → WSo 22:34 → LDRP 22:34
PROVIDERS: ADMIT Obstetrics & Gynecology; ATTEND Obstetrics & Gynecology
PROC: 10E0XZZ Delivery of Products of Conception, External Approach (ICD-10-PCS; principal; 2020-11-26)
DX: O99.343 Other mental disorders complicating pregnancy, third trimester (principal); Z37.0 Single live birth; F41.9 Anxiety disorder, unspecified; Z3A.38 38 weeks gestation of pregnancy
CPT/HCPCS: 36415; 85025; 86703; 86706; 86762; 86850; 86900; 86901; 99212

== ENCOUNTER → 2022-05-04 | Outpatient (CLI) | payer MEDICAID ==
[~2022-05-04] MED LIST: ACET-93 PO; IBUP-844 PO
== END ==
LOC: LABNPT 14:57
PROVIDERS: ATTEND Registered Nurse Emergency
DX: N10 Acute pyelonephritis (principal); F32.9 Major depressive disorder, single episode, unspecified
CPT/HCPCS: 87077; 87088; 87186